=== PATIENT | male | born 1960 | race Caucasian/White ===

== ENCOUNTER → 2016-09-11 | Outpatient (CLI) | payer OTHER, BC ==
[~2016-09-11] VITALS: Ht 182.9 cm; Wt 104.3 kg
[~2016-09-11] MED LIST: /WARF5TA PO; ALEV220C2 PO; ASPI325T OR; ASPI32ECTA PO; BABY81CH OR; BISA10SU2 RE; CELE100C OR; FENO160T10 PO; NS 1,000 ML IV SCH; PROPOFOL 200 MG/20 ML VIAL As Ordered ONE; TRIC145T19 PO; VICO5TAB OR; VITA-113 PO
--- NOTE | 2016-09-11 07:54 | ROOR ---
Patient Name: Glynn Ardon Procedure Date: 09/11/2016 7:35 AM Date of : 1960 Age: 55 Room: [facility] Gender: Male Note Status: Finalized Procedure: Colonoscopy to Cecum Indications: High risk colon cancer surveillance: Personal history of colonic polyps, Last colonoscopy: 2009 Providers: Parker Sanon MD Referring MD: LIO BETTS Requesting Provider: Medicines: Monitored Anesthesia Care Complications: No immediate complications. Procedure: Pre-Anesthesia Assessment: - The heart rate, respiratory rate, oxygen saturations, blood pressure, adequacy of pulmonary ventilation, and response to care were monitored throughout the procedure. The Colonoscope was introduced through the anus and advanced to the cecum, identified by appendiceal orifice and ileocecal valve. The colonoscopy was performed without difficulty. The patient tolerated the procedure well. The quality of the bowel preparation was excellent. Findings: The perianal and digital rectal examinations were normal. Non-bleeding internal hemorrhoids were found during retroflexion. The hemorrhoids were small and Grade I (internal hemorrhoids that do not prolapse). Multiple small and large-mouthed diverticula were found in the recto-sigmoid colon, sigmoid colon and descending colon. The exam was otherwise without abnormality on direct and retroflexion views. Impression: - Non-bleeding internal hemorrhoids. - Diverticulosis in the recto-sigmoid colon, in the sigmoid colon and in the descending colon. - The examination was otherwise normal on direct and retroflexion views. - No specimens collected. - The exam was otherwise normal to the cecum. Recommendation: - Patient has a contact number available for emergencies. The signs and symptoms of potential delayed complications were discussed with the patient. Return to normal activities tomorrow. Written discharge instructions were provided to the patient. - High fiber diet. - Discharge patient to home. - Continue present medications. - Repeat colonoscopy in 5 years for surveillance. - Return to referring physician. - The findings and recommendations were discussed with the patient's family. Parker Sanon MD Parker Sanon MD 09/11/2016 7:53:46 AM This report has been signed electronically. Number of Addenda: 0 Note Initiated On: 09/11/2016 7:35 AM Estimated Blood Loss: Estimated blood loss: none.
[2016-09-11 08:15] VITALS: BP 151/94
== END | disposition home or self-care (01) ==
LOC: M OPP 06:37
PROVIDERS: ATTEND Internal Medicine Gastroenterology
DX: Z12.11 Encounter for screening for malignant neoplasm of colon (principal); K57.30 Diverticulosis of large intestine without perforation or abscess without bleeding; K64.0 First degree hemorrhoids; Z86.010 Personal history of colon polyps; E78.5 Hyperlipidemia, unspecified; Z86.718 Personal history of other venous thrombosis and embolism; M19.90 Unspecified osteoarthritis, unspecified site; Z79.899 Other long term (current) drug therapy; Z79.82 Long term (current) use of aspirin

== ENCOUNTER → 2017-09-04 | Outpatient (CLI) | payer OTHER, BC | LOC: M RAD 10:18 | DX: M24.611 Ankylosis, right shoulder (principal); R93.7 Abnormal findings on diagnostic imaging of other parts of musculoskeletal system | CPT/HCPCS: 73030 ==

== ENCOUNTER → 2020-07-21 | Outpatient (CLI) | payer OTHER, BC ==
[~2020-07-21] MED LIST changes: -/WARF5TA PO; +ASPI-255 PO; -ASPI32ECTA PO; +COUM1TAB17 PO; +HYDR-3715 PO; -NS 1,000 ML IV SCH; -PROPOFOL 200 MG/20 ML VIAL As Ordered ONE
--- NOTE | 2020-07-21 09:53 | REP ---
INDICATION: RT KNEE PAIN. COMPARISON: None. TECHNIQUE: Multiple sequences obtained in the axial, coronal and sagittal planes. FINDINGS: Menisci: There is a complex tear of the posterior horn of the medial meniscus. There may be some mild fraying of the central portion of the body of the lateral meniscus. Cruciate ligaments: There is a partial tear of the superior aspect of the anterior cruciate ligament. The posterior cruciate ligament is intact. Collateral ligaments: Intact. Extensor mechanism/patellar retinacula: Intact. Cartilage: There is moderate diffuse chondromalacia of the patella. There is moderately severe chondromalacia along the weight-bearing surfaces of the medial femoral condyle and tibial plateau. There is moderate diffuse chondromalacia in the femoral notch. There is mild diffuse chondromalacia in the lateral joint compartment. Bone marrow: Subchondral cystic changes and mild marrow edema are seen in the central tibial plateau. Joint fluid: There is a small joint effusion. 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 Inferior popliteal cyst is noted, with all 3 components in the range of approximately 1 cm in diameter. There is a suprapatellar plica. I suspect an oval joint body along the medial margin of the posterior cruciate ligament, posteriorly, measuring approximately 18 x 8 mm. IMPRESSION: Complex tear posterior horn medial meniscus. Mild fraying suspected of the central portion of the body of the lateral meniscus. Partial tear superior aspect of the anterior cruciate ligament. 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 Subchondral cystic changes and marrow edema centrally in the tibial plateau. Small joint effusion. Suprapatellar plica. Joint body suspected posteriorly along the medial margin of the posterior cruciate ligament. 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 Inferior popliteal cyst is noted, with all 3 components in the range of approximately 1 cm in diameter. <Electronically signed by Juan Staley > 07/21/20 [id number]
== END ==
LOC: M RAD 07:01
PROVIDERS: ATTEND Surgery
DX: M25.561 Pain in right knee (principal); M25.461 Effusion, right knee; S83.231A Complex tear of medial meniscus, current injury, right knee, initial encounter; X58.XXXA Exposure to other specified factors, initial encounter; Y92.9 Unspecified place or not applicable; M94.261 Chondromalacia, right knee; M71.21 Synovial cyst of popliteal space [Baker], right knee

== ENCOUNTER 2021-01-08 15:37 | Emergency (ER) | payer OTHER, BC ==
[~2021-01-08] VITALS: Ht 182.9 cm; Wt 105.5 kg
--- NOTE | 2021-01-08 16:14 | REP ---
INDICATION: CHEST PAIN COMPARISON: 08/11/2017 TECHNIQUE: Portable AP view of the chest FINDINGS: The mediastinum and cardiac silhouette are stable and within normal limits for portable technique. The lung simpson are clear without acute consolidation, effusion, or pneumothorax. Skeletal structures are intact. IMPRESSION: No acute cardiopulmonary process appreciated. <Electronically signed by Glynn Walsh > 01/08/21 [id number]
[2021-01-08 16:17] LABS: BASO # 0.1 10^3/uL (0.0-0.2); EOS # 0.1 10^3/uL (0.0-0.5); EOS % 1.2 % (0.0-3.0); HEMATOCRIT 47.5 % (42.0-52.0); HEMOGLOBIN 16.3 g/dl (13.5-17.5); LYMPH # 1.4 10^3/uL (1.5-5.0); LYMPH % 23.3 % (24.0-44.0); MEAN CORPUSCULAR HGB CONC 34.3 g/dl (32.0-36.5); MEAN CORPUSCULAR VOLUME 93.1 fl (80.0-96.0); MONO # 0.5 10^3/uL (0.0-0.8); NEUTROPHILS # 3.8 10^3/uL (1.5-8.5); NEUTROPHILS % 64.5 % (36.0-66.0); PLATELET COUNT, AUTOMATED 265 10^3/uL (150-450); WHITE BLOOD COUNT 5.9 10^3/uL (4.0-10.0)
[2021-01-08 16:37] LABS: BLOOD UREA NITROGEN 21 MG/DL (7-18); CALCIUM LEVEL 9.7 MG/DL (8.8-10.2); CARBON DIOXIDE LEVEL 31 MEQ/L (21-32); CHLORIDE LEVEL 105 MEQ/L (98-107); CREATININE FOR GFR 0.94 MG/DL (0.70-1.30); GLOMERULAR FILTRATION RATE > 60.0 (>49); GLUCOSE, FASTING 114 MG/DL (70-100); POTASSIUM SERUM 3.8 MEQ/L (3.5-5.1); SODIUM LEVEL 140 MEQ/L (136-145)
[2021-01-08] MEDS ORDERED: ISOVUE-370 76% 100ML VIAL As Ordered ONE (16:40)
--- NOTE | 2021-01-08 17:52 | REPVR ---
PROCEDURE INFORMATION: Exam: CT Angiography Abdomen With Contrast Exam date and time: 01/08/2021 5:04 PM Age: 60 years old Clinical indication: Abdominal pain; Generalized; Additional info: Dissection TECHNIQUE: Imaging protocol: Computed tomographic angiography images of the abdomen with intravenous contrast material. 3D rendering (Not supervised by radiologist): MIP and/or 3D reconstructed images were created by the technologist. Radiation optimization: All CT scans at this facility use at least one of these dose optimization techniques: automated exposure control; mA and/or kV adjustment per patient size (includes targeted exams where dose is matched to clinical indication); or iterative reconstruction. Contrast material: ISOVUE 370; Contrast volume: 100 ml; Contrast route: INTRAVENOUS (IV); COMPARISON: CT ABD PELVIS WITH CONTRAST 08/11/2017 10:42 AM FINDINGS: Lungs: The visualized portions of the lung bases are normal. Aorta: There is no evidence of aortic dissection, leak, rupture, or other complications. Celiac trunk and mesenteric arteries: No occlusion or significant stenosis. Renal arteries: No occlusion or significant stenosis. Liver: There is diffuse moderate enlargement of the liver measuring 22 cm.There is a diffuse decrease in hepatic parenchymal density, consistent with moderate fatty infiltration. There are regions of focal parenchymal sparing adjacent to the gallbladder fossa. Gallbladder and bile ducts: The gallbladder is normal. Pancreas: The pancreas is normal. Spleen: The spleen is normal. Adrenals: The adrenal glands are normal. Kidneys and ureters: The kidneys are normal. There is no evidence of hydronephrosis. No calculi are identified. Stomach and bowel: Mild diverticulosis is present in the sigmoid and descending colon. Appendix: A normal appendix is identified. Lymph nodes: Unremarkable. No enlarged lymph nodes. Intraperitoneal space: Unremarkable. No free air. No significant fluid collection. Bones/joints: Unremarkable. No acute fracture. No dislocation. Soft tissues: Unremarkable. IMPRESSION: 1. There is no evidence of aortic dissection, leak, rupture, or other complications. 2. No evidence of an acute abdominal abnormality. Electronically signed by: Jerzy Cuellar On 01/08/2021 17:51:33 PM
--- NOTE | 2021-01-08 17:55 | REPVR ---
PROCEDURE INFORMATION: Exam: CTA Chest With Contrast Exam date and time: 01/08/2021 5:04 PM Age: 60 years old Clinical indication: Chest wall pain; Additional info: Rule out disection TECHNIQUE: Imaging protocol: Computed tomographic angiography of the chest with contrast. 3D rendering (Not supervised by radiologist): MIP and/or 3D reconstructed images were created by the technologist. Radiation optimization: All CT scans at this facility use at least one of these dose optimization techniques: automated exposure control; mA and/or kV adjustment per patient size (includes targeted exams where dose is matched to clinical indication); or iterative reconstruction. Contrast material: ISOVUE 370; Contrast volume: 100 ml; Contrast route: INTRAVENOUS (IV); COMPARISON: CT Chest with contrast 08/11/2017 10:42 AM FINDINGS: Pulmonary arteries: Normal. No pulmonary emboli. Aorta: There is no evidence of aortic dissection, leak, rupture, or other complications. Thyroid: There is a 2 cm nodule of the lower pole of the right thyroid gland. Follow-up ultrasound is recommended. Lungs: Unremarkable. No consolidation. No masses. Pleural spaces: Unremarkable. No pneumothorax. No pleural effusion. Heart: Unremarkable. No cardiomegaly. No pericardial effusion. Lymph nodes: Unremarkable. No enlarged lymph nodes. Bones/joints: There is no evidence of fracture. Soft tissues: Unremarkable. IMPRESSION: 1. There is no evidence of aortic dissection, leak, rupture, or other complications. 2. There is a 2 cm nodule of the lower pole of the right thyroid gland. Follow-up ultrasound is recommended. 3. There is no evidence of fracture. COMMENTS: Consistent with the [employer]'s Incidental Findings Committee white paper (J Am Zoila Radiol 2015): In patients aged 35 years and older with an incidental thyroid nodule equal to or greater than 1.[address], MRI or extrathyroidal US, further evaluation with dedicated thyroid US is recommended for patients with normal life expectancy and without comorbidities. For smaller nodules without suspicious features, no further evaluation or follow up is recommended. Electronically signed by: Jerzy Cuellar On 01/08/2021 17:54:53 PM
[2021-01-08 18:30] VITALS: BP 149/96
--- NOTE | 2021-01-08 19:14 | ECGEPIP ---
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
--- NOTE | 2021-01-08 19:21 | ECGEPIP ---
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
== END 2021-01-08 18:45 | disposition home or self-care (01) ==
LOC: M ED 17:37
DX: R07.89 Other chest pain (principal); R06.02 Shortness of breath; E78.5 Hyperlipidemia, unspecified; Z86.718 Personal history of other venous thrombosis and embolism; Z79.899 Other long term (current) drug therapy; Z79.82 Long term (current) use of aspirin
CPT/HCPCS: 36415; 71045; 71275; 74175; 80047; 80048; 84484; 85025; 93005; 93041; 94760; 99285; Q9967

== ENCOUNTER → 2021-01-26 | Outpatient (CLI) | payer OTHER, BC ==
--- NOTE | 2021-01-26 16:49 | REP ---
INDICATION: ABN CT-2CM RT THYROID NODULE LOWER POLE. COMPARISON: CT chest 01/08/2021. TECHNIQUE: Real-time sonographic evaluation of thyroid performed. FINDINGS: Right lobe measures 5.3 x 1.6 x 2.2 cm and left lobe 4.5 x 1.9 x 1.6 cm. In the right lower pole there is a heterogeneous isoechoic solid nodule measuring 2.3 x 2.0 x 2.4 cm. There is internal blood flow with Doppler evaluation. There is a cyst in the mid right lobe 5 x 4 x 3 mm. An oval isoechoic solid nodule in the mid left lobe measures 1.3 x 1.1 x 0.8 cm. There is internal blood flow with Doppler evaluation. IMPRESSION: A dominant solid nodule in the right lobe of the thyroid has a maximum diameter of 2.4 cm. Based on TI-RADS criteria, this is a TR 3 lesion. Recommend ultrasound-guided FNA. A smaller left lobe nodule is also a TR 3 lesion but does not satisfy size criteria for FNA. <Electronically signed by Juan Staley > 01/26/21 [id number]
== END ==
LOC: M RAD 16:02
PROVIDERS: ATTEND Physician Assistant
DX: E04.1 Nontoxic single thyroid nodule (principal)

== ENCOUNTER → 2021-02-04 | Outpatient (CLI) | payer OTHER, BC ==
[2021-02-09 10:08] LABS: ANTI THROMBIN 3 ANTIGEN IMMUNO 69 % (72-124); ANTI THROMBIN 3 FUNCT ACTIVITY 92 % (75-135); ANTINUCLEAR ANTIBODIES DIRECT Negative (Negative); HOMOCYST(E)INE SERUM 15.8 umol/L (0.0-17.2); PROTEIN C FUNCTIONAL ACTIVITY 121 % (73-180); PROTEIN S FUNCTIONAL ACTIVITY 115 % (63-140)
[2021-02-09 14:10] LABS: DRVV SCREEN 36.3 SEC
== END ==
LOC: M LAB 08:39
PROVIDERS: ATTEND Internal Medicine Cardiovascular Disease
DX: Q21.1 Atrial septal defect (principal)

== ENCOUNTER → 2022-07-19 | Outpatient (CLI) | payer OTHER, BC ==
[~2022-07-19] MED LIST changes: +ALLO100T PO; +CARV6.25 PO; +ELIQ5TAB PO
== END ==
LOC: M LABSMTC 09:16
PROVIDERS: ATTEND Anesthesiology
DX: Z01.812 Encounter for preprocedural laboratory examination (principal); Z11.52 Encounter for screening for COVID-19

== ENCOUNTER 2022-07-24 07:51 | Day surgery (SDC) | payer OTHER, BC ==
[~2022-07-24] VITALS: Ht 182.9 cm; Wt 105.2 kg
[~2022-07-24 07:51] MED LIST changes: +LIDOCAINE 2% 100MG/5ML SDV (FOR ANES.) As Ordered ONE; +NS 1,000 ML IV ONE; +propofoL 200 MG/20 ML VIAL As Ordered ONE
[2022-07-24] MEDS ORDERED: propofoL 200 MG/20 ML VIAL As Ordered ONE ×2 (08:54→09:28)
[2022-07-24] MEDS ORDERED: LIDOCAINE 2% 100MG/5ML SDV (FOR ANES.) As Ordered ONE (08:54)
[2022-07-24 10:00] VITALS: BP 143/89
== END 2022-07-24 10:12 | disposition home or self-care (01) ==
LOC: M OPP 07:51
PROVIDERS: ATTEND Internal Medicine Gastroenterology
DX: Z12.11 Encounter for screening for malignant neoplasm of colon (principal); Z86.010 Personal history of colon polyps; K64.0 First degree hemorrhoids; K57.30 Diverticulosis of large intestine without perforation or abscess without bleeding; Z79.01 Long term (current) use of anticoagulants; Z79.82 Long term (current) use of aspirin; Z79.899 Other long term (current) drug therapy; E04.1 Nontoxic single thyroid nodule; M19.90 Unspecified osteoarthritis, unspecified site; Z86.79 Personal history of other diseases of the circulatory system; Z86.718 Personal history of other venous thrombosis and embolism; Z87.891 Personal history of nicotine dependence

== ENCOUNTER → 2023-09-04 | Outpatient (CLI) | payer OTHER, BC ==
[~2023-09-04] MED LIST changes: -LIDOCAINE 2% 100MG/5ML SDV (FOR ANES.) As Ordered ONE; -NS 1,000 ML IV ONE; -propofoL 200 MG/20 ML VIAL As Ordered ONE
== END ==
LOC: M WUC 12:52
PROVIDERS: ATTEND Physician Assistant
DX: S33.5XXA Sprain of ligaments of lumbar spine, initial encounter (principal); X58.XXXA Exposure to other specified factors, initial encounter; Y92.9 Unspecified place or not applicable

== ENCOUNTER → 2024-04-18 | Outpatient (REF) | payer OTHER, BC | LOC: M WUC 20:07 | PROVIDERS: ATTEND Physician Assistant | DX: J06.9 Acute upper respiratory infection, unspecified (principal) ==

== ENCOUNTER → 2024-05-15 | Outpatient (CLI) | payer OTHER, BC | LOC: M PLAIMG 07:25 | PROVIDERS: ATTEND Physician Assistant | DX: I35.1 Nonrheumatic aortic (valve) insufficiency (principal); Q21.12 Patent foramen ovale ==

== ENCOUNTER → 2024-06-12 | Outpatient (CLI) | payer OTHER, BC | LOC: M SLEEP HO 11:26 | PROVIDERS: ATTEND Physician Assistant | DX: I27.29 Other secondary pulmonary hypertension (principal); G47.33 Obstructive sleep apnea (adult) (pediatric) ==

== ENCOUNTER → 2024-08-20 | Outpatient (CLI) | payer OTHER, BC | LOC: M SLEEP 20:00 | PROVIDERS: ATTEND Physician Assistant | DX: G47.61 Periodic limb movement disorder (principal) ==